=== PATIENT | female | born 1945 | race Caucasian/White ===

== ENCOUNTER 2021-04-06 08:56 | Day surgery (SDC) | payer MEDICARE, OTHER ==
[~2021-04-06 08:56] MED LIST: Ak-Dilate OPHTHALMIC*** 1.065 ML, Cyclogyl 1% OPHTH SOL 5 ML 1.065 ML, GATIFLOXACIN 0.5... OP ONE; BETADINE 5% OPHTHALMIC 30 ML OP ONE; Lactated Ringers 1,000 ML IV SCH; NON-FORMULARY ITEM OP ONE; TETRACAINE 0.5% STERI-UNIT SOL OP ONE; cefUROXime sodium 0.005 GM in Sodium Chloride Flush 30 ML*** 0.5 ML IJ SCH
[2021-04-06] MEDS ORDERED: Zofran 4 MG/2 ML VIAL IV PRN (09:00)
[2021-04-06] MEDS ORDERED: ACETAZOLAMIDE 250 MG TABLET PO ONE (09:00)
[2021-04-06] MEDS ORDERED: Epinephrine Preservative Free 1 MG/ML INTRAOP ONE (09:00)
[2021-04-06] MEDS ORDERED: LIDOCAINE HCL 1% 50 MG/5 ML VL PF IJ ONE (09:00)
[2021-04-06] MEDS ORDERED: Lactated Ringers 1,000 ML IV ONE (09:16)
[2021-04-06] MEDS: TETRACAINE 0.5% STERI-UNIT SOL OP ONE ×2 (09:32→10:04)
[2021-04-06] MEDS ORDERED: ROBINUL ONE (10:21)
[2021-04-06] MEDS ORDERED: DIPRIVAN 200 MG/20 ML IV ONE (10:54)
[2021-04-06 11:56] VITALS: O2SAT 97
[2021-04-06 12:10] VITALS: PULSE 89
[2021-04-06 12:12] VITALS: BP 136/85
== END 2021-04-06 12:20 | disposition home or self-care (01) ==
LOC: SDC 08:56
PROVIDERS: ATTEND Ophthalmology
DX: H25.812 Combined forms of age-related cataract, left eye (principal); Z79.899 Other long term (current) drug therapy
CPT/HCPCS: C1780; J0171; J2001; J2704; A9270-GY

== ENCOUNTER 2021-05-04 07:59 | Day surgery (SDC) | payer MEDICARE, OTHER ==
[2021-05-04] MEDS ORDERED: Epinephrine Preservative Free 1 MG/ML IJ ONE (08:00)
[2021-05-04] MEDS ORDERED: LIDOCAINE HCL 1% 50 MG/5 ML VL PF IJ ONE (08:00)
[2021-05-04] MEDS ORDERED: Lactated Ringers 1,000 ML IV ONE (08:12)
[2021-05-04] MEDS ORDERED: Zofran 4 MG/2 ML VIAL IV PRN (09:00)
[2021-05-04] MEDS ORDERED: ACETAZOLAMIDE 250 MG TABLET PO ONE (09:00)
[2021-05-04] MEDS ORDERED: DIPRIVAN 200 MG/20 ML IV ONE (10:12)
[2021-05-04] MEDS ORDERED: ROBINUL ONE (10:12)
[2021-05-04] MEDS ORDERED: Xylocaine-Mpf 2% 5 Ml Vial ONE (10:12)
[2021-05-04 11:17] VITALS: O2SAT 96
[2021-05-04] MEDS ORDERED: TYLENOL EXTRA STRENGTH 500 MG PO STA (11:32)
[2021-05-04] MEDS ORDERED: TYLENOL EXTRA STRENGTH 500 MG ONE (11:35)
[2021-05-04 11:57] VITALS: BP 151/76; PULSE 79
== END 2021-05-04 11:50 | disposition home or self-care (01) ==
LOC: SDC 07:59
PROVIDERS: ATTEND Ophthalmology
DX: H25.811 Combined forms of age-related cataract, right eye (principal); Z79.899 Other long term (current) drug therapy
CPT/HCPCS: 99100; C1780; J0171; J2001; J2704; A9270-GY

== ENCOUNTER 2021-05-19 10:05 | Day surgery (SDC) | payer MEDICARE, OTHER ==
[2021-05-19] MEDS ORDERED: Depo-Medrol 40 MG/ML IM ONE (10:06)
[2021-05-19] MEDS ORDERED: LIDOCAINE HCL 2% 100 MG/5 ML IJ ONE (10:06)
[2021-05-19] MEDS ORDERED: Lactated Ringers 1,000 ML IV ONE (11:25)
[2021-05-19] MEDS ORDERED: DIPRIVAN 200 MG/20 ML IV ONE (12:30)
--- NOTE | 2021-05-19 13:48 | XRAY ---
Indication: Left L3-S1 MBB. Intraoperative fluoroscopy provided for 8 seconds. Single digital spot image submitted for interpretation demonstrates posterior needle tips projecting over the expected left L3-S1 nerve roots. Correlate with intraoperative findings/report.
--- NOTE | 2021-05-19 13:57 | XRAY ---
8 seconds fluoroscopy time in surgery for left L3-S1 MBB.
== END 2021-05-19 13:00 | disposition home or self-care (01) ==
LOC: SDC-PAIN 10:05
PROVIDERS: ATTEND Psychiatry & Neurology Pain Medicine
DX: M47.816 Spondylosis without myelopathy or radiculopathy, lumbar region (principal); Z79.899 Other long term (current) drug therapy
CPT/HCPCS: 64493; 64494; 64495; 72020; 77002; J1030; J2704

== ENCOUNTER 2021-06-02 07:49 | Day surgery (SDC) | payer MEDICARE, OTHER ==
[2021-06-02] MEDS ORDERED: Depo-Medrol 40 MG/ML IM ONE (07:50)
[2021-06-02] MEDS ORDERED: BUPIVACAINE 0.5% VIAL IJ ONE (07:50)
[2021-06-02] MEDS ORDERED: Lactated Ringers 1,000 ML IV ONE (09:02)
[2021-06-02] MEDS ORDERED: DIPRIVAN 200 MG/20 ML IV ONE (09:12)
--- NOTE | 2021-06-02 12:01 | XRAY ---
Indication: Left L3-S1 MBB. Intraoperative fluoroscopy provided for 16 seconds. Single digital spot image submitted for interpretation demonstrate posterior needle tips projecting over the expected left L3-S1 nerve roots. Correlate with intraoperative findings/report.
--- NOTE | 2021-06-02 12:20 | XRAY ---
16 seconds fluoroscopy time in surgery for left L3-S1 MBB.
== END 2021-06-02 09:35 | disposition home or self-care (01) ==
LOC: SDC-PAIN 07:49
PROVIDERS: ATTEND Psychiatry & Neurology Pain Medicine
DX: M47.816 Spondylosis without myelopathy or radiculopathy, lumbar region (principal); Z79.899 Other long term (current) drug therapy
CPT/HCPCS: 64493; 64494; 64495; 72020; 77002; J1030; J2704

== ENCOUNTER 2021-06-16 16:40 | Day surgery (SDC) | payer MEDICARE, OTHER ==
[2021-06-16] MEDS ORDERED: Xylocaine 1% Vial 30 ML PF IJ ONE (16:41)
[2021-06-16] MEDS ORDERED: BUPIVACAINE 0.5% VIAL IJ ONE (16:41)
[2021-06-16] MEDS ORDERED: Depo-Medrol 40 MG/ML IM ONE (16:41)
[2021-06-16] MEDS ORDERED: Lactated Ringers 1,000 ML IV ONE (17:31)
[2021-06-16] MEDS ORDERED: DIPRIVAN 200 MG/20 ML IV ONE (18:34)
--- NOTE | 2021-06-16 19:36 | XRAY ---
Indication: Left L3-L5 RFA. Intraoperative fluoroscopy provided for 28 seconds. 3 digital spot image submitted for interpretation demonstrates posterior needle tips projecting over the expected left L3-L5 nerve roots. Correlate with intraoperative findings/report.
--- NOTE | 2021-06-17 10:47 | XRAY ---
28 seconds of fluoroscopy was used in surgery for a left L3-L5 RFA
== END 2021-06-16 18:56 | disposition home or self-care (01) ==
LOC: SDC-PAIN 16:40
PROVIDERS: ATTEND Psychiatry & Neurology Pain Medicine
DX: M47.816 Spondylosis without myelopathy or radiculopathy, lumbar region (principal); Z79.899 Other long term (current) drug therapy
CPT/HCPCS: 64635; 64636; 72100; 77002; 99100; J1030; J2001; J2704

== ENCOUNTER 2022-02-23 14:24 | Day surgery (SDC) | payer MEDICARE, OTHER ==
[2022-02-23] MEDS ORDERED: LIDOCAINE HCL 2% 40 MG/2 ML IJ ONE (14:25)
[2022-02-23] MEDS ORDERED: Depo-Medrol 40 MG/ML IM ONE (14:25)
[2022-02-23] MEDS ORDERED: DIPRIVAN 200 MG/20 ML IV ONE (16:07)
[2022-02-23] MEDS ORDERED: Xylocaine-Mpf 2% 5 Ml Vial ONE (16:09)
--- NOTE | 2022-02-23 17:31 | XRAY ---
Indication: Left T12-L3 MBB. Intraoperative fluoroscopy provided for 17 seconds. Single digital spot image submitted for interpretation demonstrates posterior needle tips projecting over the expected left T12-L3 nerve roots. Correlate with intraoperative findings/report.
--- NOTE | 2022-02-23 17:35 | XRAY ---
17 seconds of fluoroscopy was used in surgery for a T12-L3 MBB.
[2022-02-23] MEDS ORDERED: Lactated Ringers 1,000 ML IV ONE (17:43)
== END 2022-02-23 16:27 | disposition home or self-care (01) ==
LOC: SDC-PAIN 14:24
PROVIDERS: ATTEND Psychiatry & Neurology Pain Medicine
DX: M47.816 Spondylosis without myelopathy or radiculopathy, lumbar region (principal); I10 Essential (primary) hypertension; Z79.899 Other long term (current) drug therapy
CPT/HCPCS: 64490; 64493; 64494; 72020; 77002; J1030; J2704

== ENCOUNTER 2022-03-16 13:45 | Day surgery (SDC) | payer MEDICARE, OTHER ==
[2022-03-16] MEDS ORDERED: Marcaine Mpf 0.5% Vial 30 Ml IJ ONE (13:46)
[2022-03-16] MEDS ORDERED: Depo-Medrol 40 MG/ML IM ONE (13:46)
[2022-03-16] MEDS ORDERED: DIPRIVAN 200 MG/20 ML IV ONE (15:12)
[2022-03-16] MEDS ORDERED: Lactated Ringers 1,000 ML IV ONE (15:59)
--- NOTE | 2022-03-17 18:32 | XRAY ---
11 seconds of fluoroscopy was used in surgery for a left T12-L3 MBB.
--- NOTE | 2022-03-18 16:03 | XRAY ---
Indication: Left T12-L3 MBB. Intraoperative fluoroscopy provided for 11 seconds. Single digital spot image submitted for interpretation demonstrates posterior needle tips projecting over the expected left T12-L3 nerve roots. Correlate with intraoperative findings/report.
== END 2022-03-16 15:32 | disposition home or self-care (01) ==
LOC: SDC-PAIN 13:45
PROVIDERS: ATTEND Psychiatry & Neurology Pain Medicine
DX: M47.816 Spondylosis without myelopathy or radiculopathy, lumbar region (principal); Z79.899 Other long term (current) drug therapy
CPT/HCPCS: 64493; 64494; 64495; 72020; 77002; J1030; J2704

== ENCOUNTER 2022-06-08 15:41 | Day surgery (SDC) | payer MEDICARE ==
[2022-06-08] MEDS ORDERED: Depo-Medrol 40 MG/ML IM ONE (15:42)
[2022-06-08] MEDS ORDERED: Marcaine Mpf 0.5% Vial 30 Ml IJ ONE (15:42)
[2022-06-08] MEDS ORDERED: LIDOCAINE HCL 1% 50 MG/5 ML VL PF IJ ONE (15:42)
[2022-06-08] MEDS ORDERED: DIPRIVAN 200 MG/20 ML IV ONE (17:18)
[2022-06-08] MEDS ORDERED: Lactated Ringers 1,000 ML IV ONE (17:24)
--- NOTE | 2022-06-08 19:55 | XRAY ---
Indication: Left T12-L3 RFA. Intraoperative fluoroscopy provided for 29 seconds. 4 digital spot image submitted for interpretation demonstrates posterior needle tips projecting over the expected left T12-L3 nerve roots. Correlate with intraoperative findings/report.
--- NOTE | 2022-06-09 08:43 | XRAY ---
29 seconds of fluoroscopy was used in surgery for a left T12-L3 RFA.
== END 2022-06-08 17:50 | disposition home or self-care (01) ==
LOC: SDC-PAIN 15:41
PROVIDERS: ATTEND Psychiatry & Neurology Pain Medicine
DX: M47.816 Spondylosis without myelopathy or radiculopathy, lumbar region (principal); Z79.899 Other long term (current) drug therapy
CPT/HCPCS: 62321; 64635; 64636; 72100; 77002; 99100; J1030; J2001; J2704